=== PATIENT | female | born 1965 | race Caucasian/White ===

== ENCOUNTER 2020-11-03 17:02 | Inpatient (IN) | payer OTHER ==
[2020-11-03] MEDS ORDERED: NICOTINE POLACRILEX 2 MG GUM BUC PRN (19:40)
[2020-11-03] MEDS ORDERED: ONDANSETRON *ODT* 4 MG TABLET SL PRN (19:40)
[2020-11-03] MEDS ORDERED: MAGNESIUM HYDROX 2400MG/30ML ORAL SUSPENSION 30 ML CUP PO PRN (19:40)
[2020-11-03] MEDS ORDERED: ACETAMINOPHEN 325 MG TABLET (FP) PO PRN ×2 (19:40)
[2020-11-03] MEDS ORDERED: hydrOXYzine PAMOATE 25 MG CAPSULE (FP) PO PRN (19:40)
[2020-11-03] MEDS ORDERED: MAGNESIUM CITRATE 300 ML BOTTLE PO PRN (19:40)
[2020-11-03] MEDS ORDERED: BISMUTH SUBSALICYLATE 524 MG/30 ML PO PRN (19:40)
[2020-11-03] MEDS ORDERED: MAG HYDROX/AL HYDROX/SIMETH 30 ML UNIT-DOSE CUP PO PRN (19:40)
[2020-11-03] MEDS ORDERED: MENTHOL/PHENOL 1 EACH UD MM PRN (19:40)
[2020-11-03 20:21] VITALS: BMI 27.4
[2020-11-03] MEDS: THIAMINE HCL 100 MG TABLET (FP) PO SCH (22:33)
[2020-11-03] MEDS: MELATONIN 5 MG TABLETS PO SCH (22:33)
[2020-11-04 10:26] LABS: HEMATOCRIT 34.7 % (32.4-45.2); HEMOGLOBIN 11.3 GM/dL (10.7-15.3); MCH 26.4 pg (25.7-33.7); MCHC 32.7 g/dl (32.0-36.0); MEAN CELL VOLUME 80.7 fl (80-96); MEAN PLT VOLUME 8.4 fl (7.5-11.1); PLATELET COUNT 296 10^3/uL (134-434); RDW 22.5 % (11.6-15.6); WHITE BLOOD COUNT 4.6 K/mm3 (4.0-10.0)
[2020-11-04] MEDS: PRENATAL VITAMINS W/ FOLIC ACID TABLET (FP) PO SCH (10:28)
[2020-11-04] MEDS: diazePAM 5 MG TABLET PO SCH ×3 (10:28→22:22)
[2020-11-04 11:19] LABS: ALBUMIN 3.1 g/dl (3.4-5.0); BILIRUBIN,TOTAL 2.2 mg/dL (0.2-1); BLOOD UREA NITROGEN 13.6 mg/dL (7-18); CALCIUM 8.4 mg/dL (8.5-10.1); CREATININE 0.7 mg/dL (0.55-1.3); TOT PROT 6.3 g/dl (6.4-8.2)
[2020-11-04] MEDS: diazePAM 5 MG TABLET PO PRN (17:56)
[2020-11-04] MEDS: METHOCARBAMOL 500 MG TABLET PO PRN (22:22)
[2020-11-04] MEDS: THIAMINE HCL 100 MG TABLET (FP) PO SCH (22:22)
[2020-11-04] MEDS: traZODone HCL 100 MG TABLET (FP) PO SCH (22:22)
[2020-11-04] MEDS: hydrOXYzine PAMOATE 50 MG CAPSULE (FP) PO PRN (22:22)
[2020-11-04] MEDS: MELATONIN 5 MG TABLETS PO SCH (22:24)
[2020-11-05] MEDS: diazePAM 5 MG TABLET PO SCH ×4 (06:07→22:26)
[2020-11-05] MEDS ORDERED: ESCITALOPRAM OXALATE 10 MG TABLET ONE (09:59)
[2020-11-05] MEDS: PRENATAL VITAMINS W/ FOLIC ACID TABLET (FP) PO SCH (10:29)
[2020-11-05] MEDS: ESCITALOPRAM OXALATE 20 MG TABLET PO SCH (10:30)
[2020-11-05] MEDS: hydrOXYzine PAMOATE 50 MG CAPSULE (FP) PO PRN ×2 (17:41→22:25)
[2020-11-05] MEDS: IBUPROFEN 400 MG TABLET (FP) PO PRN (22:25)
[2020-11-05] MEDS: MELATONIN 5 MG TABLETS PO SCH (22:25)
[2020-11-05] MEDS: METHOCARBAMOL 500 MG TABLET PO PRN (22:26)
[2020-11-05] MEDS: THIAMINE HCL 100 MG TABLET (FP) PO SCH (22:26)
[2020-11-05] MEDS: traZODone HCL 100 MG TABLET (FP) PO SCH (22:26)
[2020-11-06] MEDS: diazePAM 5 MG TABLET PO SCH ×3 (07:11→21:15)
[2020-11-06] MEDS ORDERED: ESCITALOPRAM OXALATE 10 MG TABLET ONE (09:29)
[2020-11-06 10:23] LABS: CALCIUM 8.5 mg/dL (8.5-10.1)
[2020-11-06 10:24] LABS: BLOOD UREA NITROGEN 21.1 mg/dL (7-18)
[2020-11-06 10:25] LABS: ALBUMIN 3.1 g/dl (3.4-5.0)
[2020-11-06 10:27] LABS: CREATININE 0.7 mg/dL (0.55-1.3)
[2020-11-06 10:28] LABS: BILIRUBIN,TOTAL 0.3 mg/dL (0.2-1)
[2020-11-06 10:29] LABS: TOT PROT 6.3 g/dl (6.4-8.2)
[2020-11-06] MEDS: PRENATAL VITAMINS W/ FOLIC ACID TABLET (FP) PO SCH (10:37)
[2020-11-06] MEDS: ESCITALOPRAM OXALATE 20 MG TABLET PO SCH (10:37)
[2020-11-06] MEDS: hydrOXYzine PAMOATE 50 MG CAPSULE (FP) PO PRN ×2 (10:38→17:44)
[2020-11-06] MEDS: IBUPROFEN 400 MG TABLET (FP) PO PRN (13:28)
[2020-11-06] MEDS: diazePAM 5 MG TABLET PO PRN (17:44)
[2020-11-06] MEDS ORDERED: NICOTINE 10 MG CARTRIDGE (INHALER) IH PRN (18:09)
[2020-11-06] MEDS ORDERED: NICOTINE 7 MG/24 HOURS TOPICAL PATCH TD SCH (18:15)
[2020-11-06 22:44] VITALS: BP 125/81; PULSE 98; TEMP 96.5
[2020-11-07] MEDS ORDERED: diazePAM 5 MG TABLET PO SCH (06:00)
[2020-11-08] MEDS ORDERED: diazePAM 5 MG TABLET PO ONE (06:00)
== END 2020-11-06 21:15 | disposition left against medical advice (07) | DRG 770 ==
LOC: YASAS 17:02 → UNDOADMIN 21:29 → Y3N 21:29
PROVIDERS: ADMIT Allergy & Immunology; ATTEND Allergy & Immunology
PROC: HZ2ZZZZ Detoxification Services for Substance Abuse Treatment (ICD-10-PCS; principal; 2020-11-03)
DX: F10.230 Alcohol dependence with withdrawal, uncomplicated (principal); F14.20 Cocaine dependence, uncomplicated; F17.213 Nicotine dependence, cigarettes, with withdrawal; F41.9 Anxiety disorder, unspecified; F41.0 Panic disorder [episodic paroxysmal anxiety]; F32.9 Major depressive disorder, single episode, unspecified; R00.0 Tachycardia, unspecified; Z56.0 Unemployment, unspecified
CPT/HCPCS: 36415; 80053; 85027; 86593; 86780; C9803; U0003; U0005

== ENCOUNTER 2020-11-07 17:45 | Inpatient (IN) | payer OTHER ==
[2020-11-07 19:36] VITALS: BMI 28.3
[2020-11-07] MEDS ORDERED: LOPERAMIDE HCL 2 MG CAPSULE PO PRN (19:59)
[2020-11-07] MEDS ORDERED: MAGNESIUM CITRATE 300 ML BOTTLE PO PRN (19:59)
[2020-11-07] MEDS ORDERED: ACETAMINOPHEN 325 MG TABLET (FP) PO PRN (19:59)
[2020-11-07] MEDS ORDERED: MAG HYDROX/AL HYDROX/SIMETH 30 ML UNIT-DOSE CUP PO PRN (19:59)
[2020-11-07] MEDS ORDERED: guaiFENesin 200 MG/10 ML 10 ML UNIT-DOSE CUPS PO PRN (19:59)
[2020-11-07] MEDS ORDERED: P-EPHED 60MG/TRIPROLIDI 2.5MG TABLET PO PRN (19:59)
[2020-11-07] MEDS ORDERED: MAGNESIUM HYDROX 2400MG/30ML ORAL SUSPENSION 30 ML CUP PO PRN (19:59)
[2020-11-07] MEDS ORDERED: METOPROLOL TARTRATE 25 MG TABLET (FP) PO ONE (20:00)
[2020-11-08] MEDS: MELATONIN 5 MG TABLETS PO SCH ×2 (04:16→21:16)
[2020-11-08] MEDS: THIAMINE HCL 100 MG TABLET (FP) PO SCH ×2 (04:16→21:15)
[2020-11-08] MEDS: ASPIRIN 81 MG CHEWABLE TABLETS PO SCH ×2 (04:17→09:51)
[2020-11-08] MEDS: hydrOXYzine PAMOATE 25 MG CAPSULE (FP) PO PRN ×2 (04:22→14:27)
[2020-11-08] MEDS: IBUPROFEN 400 MG TABLET (FP) PO PRN ×2 (06:18→11:14)
[2020-11-08] MEDS: PRENATAL VITAMINS W/ FOLIC ACID TABLET (FP) PO SCH (09:51)
[2020-11-08] MEDS: busPIRone HCL 10 MG TABLET (FP) PO PRN (11:14)
[2020-11-08] MEDS: ESCITALOPRAM OXALATE 20 MG TABLET PO SCH (11:14)
[2020-11-08] MEDS ORDERED: PNEUMOC 13-VAL CONJ-DIP CRM/PF 0.5 ML DISP.SYRIN IM ONE (12:00)
[2020-11-08] MEDS ORDERED: PT OWN MED DRAWER 7, Y5N ONE (20:56)
[2020-11-08] MEDS: traZODone HCL 100 MG TABLET (FP) PO SCH (21:16)
[2020-11-09 07:10] VITALS: BP 103/63; PULSE 93; TEMP 97.6
[2020-11-09] MEDS: PRENATAL VITAMINS W/ FOLIC ACID TABLET (FP) PO SCH (09:30)
[2020-11-09] MEDS: busPIRone HCL 10 MG TABLET (FP) PO PRN (09:30)
[2020-11-09] MEDS: ASPIRIN 81 MG CHEWABLE TABLETS PO SCH (09:31)
[2020-11-09] MEDS: hydrOXYzine PAMOATE 25 MG CAPSULE (FP) PO PRN ×2 (09:31→14:24)
[2020-11-09] MEDS: ESCITALOPRAM OXALATE 20 MG TABLET PO SCH (09:31)
[2020-11-09] MEDS ORDERED: NICOTINE 10 MG CARTRIDGE (INHALER) IH PRN (17:12)
[2020-11-09] MEDS: THIAMINE HCL 100 MG TABLET (FP) PO SCH (22:59)
[2020-11-09] MEDS: traZODone HCL 100 MG TABLET (FP) PO SCH (22:59)
[2020-11-09] MEDS: MELATONIN 5 MG TABLETS PO SCH (22:59)
== END 2020-11-09 19:43 | disposition left against medical advice (07) | DRG 770 ==
LOC: YASAS 17:45 → Y5N 11-08 03:05
PROVIDERS: ADMIT Allergy & Immunology; ATTEND Allergy & Immunology
PROC: HZ42ZZZ Group Counseling for Substance Abuse Treatment, Cognitive-Behavioral (ICD-10-PCS; principal; 2020-11-08)
DX: F10.20 Alcohol dependence, uncomplicated (principal); F14.20 Cocaine dependence, uncomplicated; F41.0 Panic disorder [episodic paroxysmal anxiety]; R00.0 Tachycardia, unspecified; Z56.0 Unemployment, unspecified
CPT/HCPCS: C9803; U0003; U0005

== ENCOUNTER 2021-01-05 15:15 | Inpatient (IN) | payer OTHER ==
[2021-01-05 18:12] VITALS: BMI 28.9
[2021-01-05] MEDS ORDERED: ONDANSETRON *ODT* 4 MG TABLET SL PRN (18:35)
[2021-01-05] MEDS ORDERED: BISMUTH SUBSALICYLATE 524 MG/30 ML PO PRN (18:35)
[2021-01-05] MEDS ORDERED: MAG HYDROX/AL HYDROX/SIMETH 30 ML UNIT-DOSE CUP PO PRN (18:35)
[2021-01-05] MEDS ORDERED: METHOCARBAMOL 500 MG TABLET PO PRN (18:35)
[2021-01-05] MEDS ORDERED: MAGNESIUM HYDROX 2400MG/30ML ORAL SUSPENSION 30 ML CUP PO PRN (18:35)
[2021-01-05] MEDS ORDERED: MENTHOL/PHENOL 1 EACH UD MM PRN (18:35)
[2021-01-05] MEDS ORDERED: ACETAMINOPHEN 325 MG TABLET (FP) PO PRN (18:35)
[2021-01-05] MEDS ORDERED: MAGNESIUM CITRATE 300 ML BOTTLE PO PRN (18:35)
[2021-01-05] MEDS ORDERED: IBUPROFEN 400 MG TABLET (FP) PO PRN (18:35)
[2021-01-05] MEDS ORDERED: NICOTINE 10 MG CARTRIDGE (INHALER) IH PRN (18:35)
[2021-01-05] MEDS ORDERED: diazePAM 5 MG TABLET PO ONE (18:38)
[2021-01-05] MEDS: THIAMINE HCL 100 MG TABLET (FP) PO SCH (21:58)
[2021-01-05] MEDS: hydrOXYzine PAMOATE 25 MG CAPSULE (FP) PO PRN (21:58)
[2021-01-05] MEDS: ACETAMINOPHEN 325 MG TABLET (FP) PO PRN (21:59)
[2021-01-05] MEDS: diazePAM 5 MG TABLET PO SCH (21:59)
[2021-01-05] MEDS ORDERED: MELATONIN 5 MG TABLETS PO SCH (22:00)
[2021-01-06] MEDS: diazePAM 5 MG TABLET PO SCH ×4 (05:53→22:14)
[2021-01-06] MEDS: hydrOXYzine PAMOATE 25 MG CAPSULE (FP) PO PRN ×2 (05:53→17:13)
[2021-01-06] MEDS ORDERED: LOPERAMIDE HCL 2 MG CAPSULE PO ONE (10:06)
[2021-01-06] MEDS: PRENATAL VITAMINS W/ FOLIC ACID TABLET (FP) PO SCH (10:12)
[2021-01-06 10:14] LABS: HEMATOCRIT 34.7 % (32.4-45.2); HEMOGLOBIN 11.5 GM/dL (10.7-15.3); MCH 27.2 pg (25.7-33.7); MCHC 33.2 g/dl (32.0-36.0); MEAN CELL VOLUME 81.8 fl (80-96); MEAN PLT VOLUME 7.8 fl (7.5-11.1); PLATELET COUNT 337 10^3/uL (134-434); RBC 4.24 M/mm3 (3.60-5.2); RDW 22.6 % (11.6-15.6); WHITE BLOOD COUNT 5.7 K/mm3 (4.0-10.0)
[2021-01-06 10:21] LABS: CALCIUM 9.4 mg/dL (8.5-10.1)
[2021-01-06 10:22] LABS: ALBUMIN 3.5 g/dl (3.4-5.0); BLOOD UREA NITROGEN 6.8 mg/dL (7-18)
[2021-01-06 10:24] LABS: CREATININE 0.5 mg/dL (0.55-1.3)
[2021-01-06 10:26] LABS: TOT PROT 7.5 g/dl (6.4-8.2)
[2021-01-06 10:29] LABS: BILIRUBIN,TOTAL 1.3 mg/dL (0.2-1)
[2021-01-06] MEDS: ESCITALOPRAM OXALATE 20 MG TABLET PO SCH (10:29)
[2021-01-06] MEDS: amLODIPine BESYLATE 10 MG TABLET (FP) PO SCH (11:41)
[2021-01-06] MEDS: FAMOTIDINE 20 MG TABLET PO SCH ×2 (11:41→22:14)
[2021-01-06] MEDS: traZODone HCL 100 MG TABLET (FP) PO SCH (22:14)
[2021-01-06] MEDS: THIAMINE HCL 100 MG TABLET (FP) PO SCH (22:14)
[2021-01-07] MEDS: diazePAM 5 MG TABLET PO SCH ×3 (05:55→22:14)
[2021-01-07] MEDS: PRENATAL VITAMINS W/ FOLIC ACID TABLET (FP) PO SCH (10:48)
[2021-01-07] MEDS: diazePAM 5 MG TABLET PO PRN (10:49)
[2021-01-07] MEDS: amLODIPine BESYLATE 10 MG TABLET (FP) PO SCH (10:49)
[2021-01-07] MEDS: ESCITALOPRAM OXALATE 20 MG TABLET PO SCH (10:49)
[2021-01-07] MEDS: FAMOTIDINE 20 MG TABLET PO SCH ×2 (10:49→22:14)
[2021-01-07] MEDS: THIAMINE HCL 100 MG TABLET (FP) PO SCH (22:14)
[2021-01-07] MEDS: traZODone HCL 100 MG TABLET (FP) PO SCH (22:14)
[2021-01-08] MEDS: diazePAM 5 MG TABLET PO SCH ×2 (06:06→17:40)
[2021-01-08] MEDS: amLODIPine BESYLATE 10 MG TABLET (FP) PO SCH (10:30)
[2021-01-08] MEDS: PRENATAL VITAMINS W/ FOLIC ACID TABLET (FP) PO SCH (10:30)
[2021-01-08] MEDS: FAMOTIDINE 20 MG TABLET PO SCH ×2 (10:30→21:33)
[2021-01-08] MEDS: diazePAM 5 MG TABLET PO PRN (10:31)
[2021-01-08] MEDS: ESCITALOPRAM OXALATE 20 MG TABLET PO SCH (10:31)
[2021-01-08] MEDS: ACETAMINOPHEN 325 MG TABLET (FP) PO PRN (12:26)
[2021-01-08] MEDS ORDERED: POTASSIUM CHLORIDE ORAL LIQUID 20 MEQ/15 ML PO ONE ×2 (16:30→20:30)
[2021-01-08] MEDS: hydrOXYzine PAMOATE 25 MG CAPSULE (FP) PO PRN (17:40)
[2021-01-08] MEDS: THIAMINE HCL 100 MG TABLET (FP) PO SCH (21:33)
[2021-01-08] MEDS: traZODone HCL 100 MG TABLET (FP) PO SCH (21:33)
[2021-01-09] MEDS ORDERED: diazePAM 5 MG TABLET PO ONE (06:00)
[2021-01-09] MEDS: FAMOTIDINE 20 MG TABLET PO SCH (09:04)
[2021-01-09] MEDS: amLODIPine BESYLATE 10 MG TABLET (FP) PO SCH (09:04)
[2021-01-09] MEDS: ESCITALOPRAM OXALATE 20 MG TABLET PO SCH (09:04)
[2021-01-09] MEDS: PRENATAL VITAMINS W/ FOLIC ACID TABLET (FP) PO SCH (09:05)
[2021-01-09 09:19] VITALS: BP 135/86; PULSE 112; TEMP 97.9
== END 2021-01-09 09:26 | disposition home or self-care (01) | DRG 774 ==
LOC: YASAS 15:15 → Y6N 20:23
PROVIDERS: ADMIT Allergy & Immunology; ATTEND Allergy & Immunology
PROC: HZ2ZZZZ Detoxification Services for Substance Abuse Treatment (ICD-10-PCS; principal; 2021-01-05)
DX: F10.230 Alcohol dependence with withdrawal, uncomplicated (principal); F14.20 Cocaine dependence, uncomplicated; F12.20 Cannabis dependence, uncomplicated; F17.210 Nicotine dependence, cigarettes, uncomplicated; F10.282 Alcohol dependence with alcohol-induced sleep disorder; F10.24 Alcohol dependence with alcohol-induced mood disorder; F25.9 Schizoaffective disorder, unspecified; F31.9 Bipolar disorder, unspecified; F41.9 Anxiety disorder, unspecified; E87.6 Hypokalemia; I10 Essential (primary) hypertension; Z62.810 Personal history of physical and sexual abuse in childhood; Z91.410 Personal history of adult physical and sexual abuse; Z86.19 Personal history of other infectious and parasitic diseases; Z59.00 Homelessness unspecified
CPT/HCPCS: 36415; 80053; 84132; 85027; 86593; 86780; C9803; U0003; U0005